=== PATIENT | male | born 1970 | race Caucasian/White ===

== ENCOUNTER → 2021-11-25 | Outpatient (CLI) | payer BC ==
--- NOTE | 2021-11-25 09:39 | US ---
EXAMINATION TYPE: US axilla RT DATE OF EXAM: 11/25/2021 COMPARISON: NONE CLINICAL HISTORY: M79.89 SWELLING IN RT ARMPIT. Swelling in armpit since June. Scanned right axilla at patient's area of swellin.5 x 1.3 x 0.8 cm. IMPRESSION: Prominent lymph node right axilla
== END | disposition home or self-care (01) ==
LOC: RADUSWWP 08:51
PROVIDERS: ATTEND Family Medicine
DX: R59.0 Localized enlarged lymph nodes (principal)

== ENCOUNTER 2024-10-29 10:05 | Day surgery (SDC) | payer BC, OTHER ==
[2024-10-28 13:15] VITALS: BMI 23.7
[2024-10-29 10:48] VITALS: RESP 16; TEMP 97.4
[2024-10-29] MEDS: IV FLUID CONTINUATION 1,000 ML IV ONE (10:53)
[2024-10-29] MEDS: LACTATED RINGERS 1,000 ML IV SCH (10:53)
[2024-10-29] MEDS ORDERED: PROPOFOL 10 MG/ML 20 ML VIAL IV ONE (12:14)
--- NOTE | 2024-10-29 12:31 | P.PCN ---
Date of Procedure: 10/29/24 Procedure(s) Performed: BRIEF HISTORY: Patient is a 54-year-old pleasant white male scheduled for an elective colonoscopy as a part of screening for colorectal neoplasia PROCEDURE PERFORMED: Colonoscopy. PREOPERATIVE DIAGNOSIS: Screening for colon cancer. IV sedation per Anesthesia. PROCEDURE: After informed consent was obtained, the patient, was brought into the endoscopy unit. IV sedation was administered by Anesthesia under continuous monitoring. Digital rectal examination was normal. Initially the Olympus CF-160 flexible video colonoscope was then inserted in the rectum, gradually advanced into the cecum without any difficulty. Careful examination was performed as the scope was gradually being withdrawn. Ileocecal valve and the appendiceal orifice were visualized and appeared normal. Prep was excellent. Mucosa of the cecum, ascending colon, transverse colon, descending colon, sigmoid colon, and rectum appeared normal. Scattered sigmoid diverticulosis. Retroflexion was performed in the rectum and grade 2 internal hemorrhoid were seen. The patient tolerated the procedure well. IMPRESSION: Normal-appearing colon from rectum to cecum with no evidence of colorectal neoplasia. Scattered sigmoid diverticulosis Internal hemorrhoids RECOMMENDATIONS: Findings of this examination were discussed with the patient as well as his family. He was advised to have repeat screening colonoscopy in 10 years..
[2024-10-29 13:14] VITALS: BP 133/69; PULSE 55
== END 2024-10-29 13:15 | disposition home or self-care (01) ==
LOC: ORWHC2ENDO 10:05
PROVIDERS: ATTEND Internal Medicine Gastroenterology
DX: Z12.11 Encounter for screening for malignant neoplasm of colon (principal); K57.30 Diverticulosis of large intestine without perforation or abscess without bleeding; K64.8 Other hemorrhoids
CPT/HCPCS: 45378; J2704